=== PATIENT | female | born 1955 | race Caucasian/White ===

== ENCOUNTER 2016-07-09 12:53 | Day surgery (SDC) | payer OTHER ==
--- NOTE | 2016-07-07 08:25 | HP ---
DATE OF SURGERY: 07/09/2016 ADMISSION DIAGNOSIS: Gallstones. ANTICIPATED PROCEDURE: Cholecystectomy. HISTORY OF PRESENT ILLNESS: A patient with upper abdominal pain. Ultrasound positive. Seen and examined. Procedure discussed in detail and wished to proceed. PAST MEDICAL HISTORY: ALLERGIES: NONE. MEDICATIONS: None. PAST SURGICAL HISTORY: None. SOCIAL HISTORY: Negative. FAMILY HISTORY: Negative. REVIEW OF SYSTEMS: Negative. PHYSICAL EXAMINATION: VITAL SIGNS: Normal. CHEST: Clear. COR: Regular. ABDOMEN: No palpable organomegaly or mass. IMPRESSION: Symptomatic cholelithiasis. PLAN: Laparoscopic cholecystectomy.
[~2016-07-09 12:53] MED LIST: Lactated Ringers 1,000 ML IV ONE; Sensorcaine 0.25% 10 ML ONE
[2016-07-09] MEDS ORDERED: MEFOXIN 2 GM PREMIX** 50 ML IV ONE (13:12)
[2016-07-09] MEDS ORDERED: Pepcid 20 MG VIAL IV ONE (13:14)
[2016-07-09] MEDS ORDERED: Lactated Ringers 1,000 ML IV SCH (13:30)
[2016-07-09] MEDS ORDERED: Transderm Scop 1.5MG Patch TOP PRN (13:34)
[2016-07-09] MEDS ORDERED: OFIRMEV 100 ML IV ONE (16:47)
[2016-07-09] MEDS ORDERED: SUBLIMAZE 100 MCG/2 ML ONE (17:54)
[2016-07-09] MEDS ORDERED: NORCO 5/325 MG PO PRN (18:49)
[2016-07-09] MEDS ORDERED: NORCO 5/325 MG ONE (18:50)
[2016-07-09 20:07] VITALS: O2SAT 96
[2016-07-09 20:10] VITALS: BP 129/68; PULSE 75
--- NOTE | 2016-07-10 14:39 | OP ---
SURGERY DATE: 07/09/16 SURGERY TIME: 1640 PREOPERATIVE DIAGNOSIS: 1. SYMPTOMATIC CHOLELITHIASIS. POSTOPERATIVE DIAGNOSIS: 1. SYMPTOMATIC CHOLELITHIASIS. PROCEDURE: 1. Laparoscopic cholecystectomy. SURGEON: Bharat Zurita M.D. ANESTHESIA: General by Donta Chavez CRNA. COMPLICATIONS: None. CONDITION: Stable. INDICATION: Patient requiring cholecystectomy. OPERATIVE PROCEDURE: Taken to surgery. General anesthetic. Routine prep and drape. Veress needle inserted. Opened to a pressure of 4. Insufflated to a pressure of 14. Four 5s were used. Good visualization. Cystic duct defined. Cystic artery defined. Both structures triply Ligaclipped and transected. Clips totally cross wall approximated. Gallbladder rolled out of gallbladder fossa. Gallbladder delivered through the upper port with widening. The upper epigastric hole was closed with a hole closure device with 0 Vicryl. Field was totally dry and clean. CO2 was exsufflated. Skin closed with 4-0 Vicryl. Steri-strips. Patient tolerated the procedure satisfactory.
== END 2016-07-09 19:50 | disposition home or self-care (01) ==
LOC: SDC 12:53
PROVIDERS: ATTEND Surgery
PROC: 0FT44ZZ Resection of Gallbladder, Percutaneous Endoscopic Approach (ICD-10-PCS; principal; 2016-07-09)
DX: K80.20 Calculus of gallbladder without cholecystitis without obstruction (principal)
CPT/HCPCS: 36415; J0694; J3010